=== PATIENT | female | born 1935 | race Caucasian/White ===

== ENCOUNTER 2019-01-22 16:18 | Inpatient (IN) | payer OTHER, MEDICAID ==
[~2019-01-22] VITALS: Ht 152.4 cm; Wt 74.0 kg
[2019-01-22 17:28] LABS: BASOPHILS % (AUTO) 0.5 % (0.0-2.0); EOSINOPHILS % (AUTO) 0.1 % (0.0-6.0); HEMATOCRIT 27 % (33-45); HEMOGLOBIN 9.1 g/dL (11.5-14.8); LYMPHOCYTES # (AUTO) 1.4 /CMM (0.8-4.8); LYMPHOCYTES % (AUTO) 15.8 % (20.0-44.0); MEAN CORPUSCULAR HGB CONC 34 g/dl (31.0-36.0); MEAN CORPUSCULAR VOLUME 90 fL (82-100); MONOCYTES # (AUTO) 0.5 /CMM (0.1-1.30); MONOCYTES % (AUTO) 5.4 % (2.0-12.0); NEUTROPHILS # (AUTO) 6.8 /CMM (1.8-8.9); NEUTROPHILS % (AUTO) 78.2 % (43.0-81.0); PLATELET COUNT (AUTO) 223 /CMM (150-450); RED BLOOD CELL COUNT(AUTO) 3.03 MIL/uL (4.0-5.2); WHITE BLOOD COUNT (AUTO) 8.7 K/uL (4.3-11.0)
[2019-01-22] MEDS ORDERED: HYDROCODONE/APAP 5/325MG 1 EACH TABLET PO ONE (17:30)
[2019-01-22] MEDS ORDERED: ONDANSETRON 4 MG TAB.RAPDIS SL ONE (17:30)
[2019-01-22] MEDS ORDERED: HYDROCODONE/APAP 5/325MG 1 EACH TABLET ONE (17:34)
[2019-01-22] MEDS ORDERED: ONDANSETRON 4 MG TAB.RAPDIS ONE (17:34)
[2019-01-22 17:36] LABS: CARBON DIOXIDE 28 mmol/L (21-32); CHLORIDE 103 mmol/L (98-107); CREATININE 1.4 mg/dL (0.6-1.3); GLUCOSE 145 mg/dL (74-106); POTASSIUM 3.5 mmol/L (3.5-5.1); SODIUM SERUM 140 mmol/L (136-145); UREA NITROGEN, BLOOD 28 mg/dL (7-18)
--- NOTE | 2019-01-22 17:40 | NUR ---
Patient awake alert place in gown family @ bedside
--- NOTE | 2019-01-22 18:09 | NUR ---
Patient asleep @ this time but arousable her family @ bedside .
--- NOTE | 2019-01-22 18:52 | NUR ---
CALLED [facility] [phone] ---> [phone] TO CONTACT ABDIFATAH Ch
[2019-01-22] MEDS ORDERED: ONDANSETRON HCL/PF 4 MG/2 ML VIAL ONE (19:17)
[2019-01-22] MEDS ORDERED: MORPHINE SULFATE INJ 2 MG/ML DISP.SYRIN ONE (19:17)
[2019-01-22] MEDS ORDERED: MORPHINE SULFATE INJ 2 MG/ML DISP.SYRIN IV ONE (19:30)
[2019-01-22] MEDS ORDERED: IV NS 0.9% 500 ML BAG IV ONE (19:30)
[2019-01-22] MEDS ORDERED: ONDANSETRON HCL/PF - ER 4 MG/2 ML VIAL IV ONE (19:30)
--- NOTE | 2019-01-22 19:54 | NUR ---
ROME GALAVIZ ([facility]) - [phone]
--- NOTE | 2019-01-22 20:05 | NUR ---
CALLED HOUSE [facility] FOR MS BED
[2019-01-22] MEDS ORDERED: ONDANSETRON HCL/PF 4 MG/2 ML VIAL IVP PRN (20:30)
[2019-01-22] MEDS ORDERED: Z GUARD REMEDY 2 OZ OINT TP PRN (20:30)
[2019-01-22] MEDS ORDERED: MAG HYDROX/AL HYDROX/SIMETH 30 ML UDC PO PRN (20:30)
--- NOTE | 2019-01-22 20:39 | NUR ---
REPORT GIVEN TO GARY IBARRA FOR JAVIER.
[2019-01-22 21:04] LABS: APPEARANCE,URINE Slightly Cloudy (CLEAR); BILIRUBIN,URINE Negative (NEGATIVE); BLOOD, URINE Negative Ery/uL (NEGATIVE); COLOR,URINE Dark (YELLOW); KETONES,URINE Negative (NEGATIVE); LEUKOCYTE ESTERASE ,URINE Trace (NEGATIVE); NITRITE, URINE Negative (NEGATIVE); PH,URINE 8.5 (5.0-8.0); PROTEIN,URINE Negative (NEGATIVE); UGLUCOSE Negative (NEGATIVE); UROBILINOGEN,URINE 0.2 EU/dL (0.2)
[2019-01-22 21:05] VITALS: BP 132/72
[2019-01-22 21:08] LABS: BACTERIA,URINE Few /HPF (None Seen); RBC,URINE 0-2 /HPF (0-2); SQUAMOUS EPITHELIAL CELL,UR Moderate /HPF (None Seen); URINE AMORPHOUS PHOSPHATES Moderate /HPF (None Seen)
--- NOTE | 2019-01-22 21:10 | NUR ---
PT TRANSPORTED TO UNIT ON [facility] W/ EMT AT BEDSIDE.
--- NOTE | 2019-01-22 21:10 | NUR ---
MS WILDLIFE CONTROL AGENT NOTES PATIENT CAME TO UNIT VIA GURNEY. PATIENT IS ALERT, ORIENTED X 4. NO COMPLAINTS OF PAIN EXCEPT UPON MOVEMENT. BREATHING EVEN AND UNLABORED. NOT IN ANY DISTRESS. ON ROOM AIR. VITAL SIGNS WITHIN NORMAL LIMITS. IV ACCESS ON RFA G#20 INTACT AND PATENT. ASKED PATIENT ABOUT HOME MEDICATIONS, PATIENT SAID SHE CAN'T REMEMBER ALL OF THEM. SON, ROME, WILL BRING THE LIST OF HOME MEDS IN THE MORNING. BELONGINGS LIST CHECKED BY KEE GREGORIO. ORIENTED TO CALL LIGHT- PLACED WITHIN EASY REACH. BED IN LOW, LOCKED POSITION. WILL CONTINUE TO MONITOR ACCORDINGLY
[2019-01-22 21:30] VITALS: BP 132/72
[2019-01-22] MEDS: IV NS 0.9% 1,000 ML IV PRN (22:00)
[2019-01-22] MEDS ORDERED: PHYTONADIONE INJ 10 MG/1 ML AMPUL SQ ONE (23:30)
--- NOTE | 2019-01-23 00:10 | NUR ---
RN NOTES JAVA TECHNICAL ARCHITECT EMELI CURRENTLY AT BEDSIDE
[2019-01-23] MEDS ORDERED: LEVOFLOXACIN 250 MG /D5W 50 ML 50 ML IV ONE (04:59)
[2019-01-23] MEDS: LEVOFLOXACIN 250 MG /D5W 50 ML 250 MG in PREMIX 1 EA IV SCH (05:00)
[2019-01-23] MEDS: MORPHINE SULFATE INJ 2 MG/ML DISP.SYRIN IV PRN (06:28)
[2019-01-23 06:33] LABS: BASOPHILS % (AUTO) 0.3 % (0.0-2.0); EOSINOPHILS % (AUTO) 0.3 % (0.0-6.0); HEMATOCRIT 22 % (33-45); HEMOGLOBIN 7.5 g/dL (11.5-14.8); LYMPHOCYTES # (AUTO) 1.8 /CMM (0.8-4.8); LYMPHOCYTES % (AUTO) 28.9 % (20.0-44.0); MEAN CORPUSCULAR HGB CONC 34 g/dl (31.0-36.0); MEAN CORPUSCULAR VOLUME 89 fL (82-100); MONOCYTES # (AUTO) 0.5 /CMM (0.1-1.30); MONOCYTES % (AUTO) 7.8 % (2.0-12.0); NEUTROPHILS % (AUTO) 62.7 % (43.0-81.0); PLATELET COUNT (AUTO) 208 /CMM (150-450); RED BLOOD CELL COUNT(AUTO) 2.49 MIL/uL (4.0-5.2); WHITE BLOOD COUNT (AUTO) 6.3 K/uL (4.3-11.0)
--- NOTE | 2019-01-23 06:34 | NUR ---
Maintain limbs in functional alignment *Reposition per protocol *Offload extremities Addendum: 01/23/19 at 0639 by FRED LICEA RN DISREGARD
--- NOTE | 2019-01-23 06:42 | NUR ---
MS RN CLOSING NOTES PATIENT RESTING IN BED, ALERT, ORIENTED X 4. PATIENT C/O LEFT LEG PAIN, 8. MORPHINE 1MG IV GIVEN ORDERED. PERIPHERAL IV INFUSING AT 75ML/HR. KEPT CLEAN, DRY AND COMFORTABLE. NO ACUTE CHANGES OVERNIGHT. SAFETY MEASURES IN PLACE; CALL LIGHT WITHIN REACH. BED IN LOW, LOCKED POSITION. WILL CONTINUE TO MONITOR ACCORDINGLY
--- NOTE | 2019-01-23 06:50 | NUR ---
RN NOTES RECEIVED A CALL FROM LAB OF CRITICAL VALUE OF INR-6.64 AND PTT- 71.4. EMELI HEATH MADE AWARE. AWAITING FOR CALLBACK. WILL ENDORSE TO MORNING RN
[2019-01-23 07:05] LABS: CALCIUM, SERUM 8.2 mg/dL (8.5-10.1); CARBON DIOXIDE 27 mmol/L (21-32); CHLORIDE 107 mmol/L (98-107); CREATININE 1.6 mg/dL (0.6-1.3); GLUCOSE 129 mg/dL (74-106); MAGNESIUM 1.8 mg/dL (1.8-2.4); PHOSPHORUS 3.7 mg/dL (2.5-4.9); POTASSIUM 3.1 mmol/L (3.5-5.1); SODIUM SERUM 141 mmol/L (136-145); UREA NITROGEN, BLOOD 32 mg/dL (7-18)
--- NOTE | 2019-01-23 07:10 | NUR ---
MS RN OPENING NOTES RECEIVED PATIENT IN BED ALERT AND AWAKE. DENIES ANY C/O PAIN NOR DISCOMFORT AT THIS TIME. RFA G#20 INTACT AND PATENT INFUSING NS @ 75ML/HR [place]. PT/INR RESULT RELAYED TO [facility] WITH ORDER FOR DAILY PT/INR. BED IN LOWEST POSITION, LOCKED. BED SIDERAILS UP X2. CALL LIGHT WITHIN REACH.
--- NOTE | 2019-01-23 07:10 | NUR ---
RN NOTES ENDORSED JAVIER TO GARY NIELSON
[2019-01-23 07:13] LABS: CHOLESTEROL 128 mg/dL (<200); HDL CHOLESTEROL 34 mg/dL (40-60); LDL 71 mg/dL (0-99); THYROID STIMULATING HORMONE 2.992 uIU/mL (0.358-3.74); TRIGLYCERIDES 143 mg/dL (30-150)
[2019-01-23 08:00] VITALS: BP 117/72
[2019-01-23] MEDS ORDERED: POTASSIUM CHLORIDE 20 MEQ TAB.PRT.SR PO ONE (08:00)
[2019-01-23] MEDS: IV NS 0.9% 1,000 ML IV PRN (08:33)
[2019-01-23] MEDS: POTASSIUM CL. PREMIX PERIPHER. 50 ML IV SCH ×4 (08:53→12:26)
[2019-01-23] MEDS: PANTOPRAZOLE 40 MG VIAL IV SCH (08:53)
[2019-01-23] MEDS: HYDROCODONE/APAP 5/325MG 1 EACH TABLET PO PRN ×2 (09:27→18:03)
[2019-01-23] MEDS ORDERED: AMIO200T4 PO (12:02)
[2019-01-23] MEDS ORDERED: VERA240C2 PO (12:02)
[2019-01-23] MEDS ORDERED: WARF-58 PO (12:02)
[2019-01-23] MEDS ORDERED: HYDR25TA4 PO (12:02)
[2019-01-23] MEDS ORDERED: CALC-20 PO (12:02)
[2019-01-23] MEDS ORDERED: LOSA50TA39 PO (12:02)
[2019-01-23] MEDS ORDERED: DOCU100C36 PO (12:02)
[2019-01-23] MEDS ORDERED: SENN-168 PO (12:02)
[2019-01-23] MEDS ORDERED: FENO54TA PO (12:02)
[2019-01-23] MEDS ORDERED: PRAV40TA3 PO (12:02)
[2019-01-23] MEDS ORDERED: KETO5DRO72 EACHEYE (12:02)
[2019-01-23] MEDS ORDERED: DICL100G16 TP (12:02)
[2019-01-23] MEDS ORDERED: TRIA60LO8 TP (12:02)
[2019-01-23] MEDS ORDERED: VERA120T20 PO (12:05)
--- NOTE | 2019-01-23 19:11 | NUR ---
MS RN CLOSING NOTES PATIENT IN RESTING COMFORTABLY IN BED. DENIES ANY C/O PAIN NOR DISCOMFORT AT THIS TIME. RFA G#20 INTACT AND PATENT INFUSING NS @ 80ML/HR [place]. FAMILY AT BEDSIDE. FAMILY REQUESTING FOR TRANSFER TO [facility]. INFORMED SONROME THAT AN ACCEPTING MD AT [place] HAS TO ACCEPT PATIENT IN [place]. PER SON HE WILL COORDINATE WITH PATIENT'S PRIMARY MD. ALSO INFORMED SON TO SPEAK WITH CASE MANAGEMENT IN AM. BED IN LOWEST POSITION, LOCKED. BED SIDERAILS UP X2. CALL LIGHT WITHIN REACH. IN NO APPARENT DISTRESS.
--- NOTE | 2019-01-23 19:20 | NUR ---
RN OPENING NOTES RECEIVED PATIENT ASLEEP, RESTING COMFORTABLY IN BED, EASILY AROUSABLE TO MY VOICE. NO SIGNS OF RESPIRATORY DISTRESS/SHORTNESS OF BREATH NOTED. RFA G#20 INTACT AND PATENT WITH IVF INFUSING AT 80 ML/HR. FAMILY AT BED SIDE. NO COMPLAINTS OF PAIN/DISCOMFORT AT THIS TIME. SAFETY PRECAUTIONS IMPLEMENTED; CALL LIGHT WITHIN REACH, BED LOWEST POSITION, BED LOCKED, BILATERAL UPPER SIDE RAILS UP. WILL CONTINUE TO MONITOR PATIENT.
[2019-01-23 20:00] VITALS: BP 145/65
--- NOTE | 2019-01-23 22:55 | NUR ---
BARREL MAKER OF CARE PATIENT IN STABLE CONDITION. REPORT GIVEN AND TRANSFER OF CARE TO GARY WONG.
[2019-01-24] VITALS (7 sets, daily range): BP systolic 95–142; BP diastolic 46–68
[2019-01-24] MEDS: LEVOFLOXACIN 250 MG /D5W 50 ML 250 MG in PREMIX 1 EA IV SCH (05:22)
--- NOTE | 2019-01-24 06:40 | NUR ---
MS RN NOTES AWAKE & RESPONSIVE. NOT IN ANY DISTRESS. NO SOB NOTED. DENIES ANY PAIN OR DISCOMFORT AT THIS TIME. WITH IV-HL PATENT & INTACT. AM CARE DONE. MONITORED ACCORDINGLY. CALL LIGHT WITHIN REACH. BED IN LOWEST POSITION. SR UP X 3 WITH BED ALARM ON FOR SAFETY. WILL ENDORSE TO NEXT SHIFT.
[2019-01-24 06:48] LABS: BASOPHILS % (AUTO) 0.2 % (0.0-2.0); EOSINOPHILS % (AUTO) 0.1 % (0.0-6.0); LYMPHOCYTES # (AUTO) 1.3 /CMM (0.8-4.8); LYMPHOCYTES % (AUTO) 16.5 % (20.0-44.0); MEAN CORPUSCULAR HGB CONC 34 g/dl (31.0-36.0); MEAN CORPUSCULAR VOLUME 89 fL (82-100); MONOCYTES # (AUTO) 0.6 /CMM (0.1-1.30); NEUTROPHILS % (AUTO) 75.2 % (43.0-81.0); PLATELET COUNT (AUTO) 203 /CMM (150-450); RED BLOOD CELL COUNT(AUTO) 2.08 MIL/uL (4.0-5.2)
[2019-01-24 07:05] LABS: HEMOGLOBIN 6.4 g/dL (11.5-14.8)
[2019-01-24 07:06] LABS: HEMATOCRIT 19 % (33-45)
[2019-01-24 07:21] LABS: CALCIUM, SERUM 8.2 mg/dL (8.5-10.1); CREATININE 1.3 mg/dL (0.6-1.3); POTASSIUM 3.9 mmol/L (3.5-5.1)
--- NOTE | 2019-01-24 07:25 | NUR ---
MS RN NOTES H/H 6.4 & 29. REPORT GIVEN TO NEHA VEGA FOR CONTINUITY OF CARE. WILL F/U WITH PMD.
--- NOTE | 2019-01-24 08:00 | NUR ---
MS RN OPENING NOTES Received Patient asleep and resting in bed. VS stable with no acute distress. Breathing even and unlabored on room air with no respiratory distress. No signs and symptoms of pain. Noted infiltrated 22g PIV on RFA with redness and edema noted. Stopped IVF at this time. Safety precautions in place. Bed locked and set to lowest position with side rails x 2 up. All needs rendered at this time. Call light within reach. Will continue to monitor.
--- NOTE | 2019-01-24 08:17 | NUR ---
MS RN NOTES Notified Ashish TESTER OPERATOR of critical H/H-6.06/07 at this time. Per TESTER OPERATOR, ordered redraw CBC. Patient in stable condition and eating breakfast. Will continue to monitor.
[2019-01-24 08:18] LABS: BASOPHILS % (AUTO) 0.3 % (0.0-2.0); LYMPHOCYTES # (AUTO) 1.1 /CMM (0.8-4.8); LYMPHOCYTES % (AUTO) 12.4 % (20.0-44.0); MEAN CORPUSCULAR HGB CONC 34 g/dl (31.0-36.0); MEAN CORPUSCULAR VOLUME 90 fL (82-100); MONOCYTES # (AUTO) 0.7 /CMM (0.1-1.30); MONOCYTES % (AUTO) 7.8 % (2.0-12.0); NEUTROPHILS # (AUTO) 7.3 /CMM (1.8-8.9); NEUTROPHILS % (AUTO) 79.5 % (43.0-81.0); PLATELET COUNT (AUTO) 221 /CMM (150-450); RED BLOOD CELL COUNT(AUTO) 2.05 MIL/uL (4.0-5.2); WHITE BLOOD COUNT (AUTO) 9.2 K/uL (4.3-11.0)
[2019-01-24 08:26] LABS: HEMOGLOBIN 6.3 g/dL (11.5-14.8)
[2019-01-24 08:27] LABS: HEMATOCRIT 19 % (33-45)
[2019-01-24 08:50] LABS: LYMPHOCYTES % (MANUAL) 18 % (16-48); MONOCYTES % (MANUAL) 5 % (0-11.0); NEUTROPHILS % (MANUAL) 77 (42-76)
--- NOTE | 2019-01-24 08:55 | NUR ---
MS RN NOTES Notified Ashish MANAGEMENT COORDINATOR of critical H/H of 6.3. Per MANAGEMENT COORDINATOR, ordered 1unit PRBC. Order noted and carried out. Patient in stable condition. Son at bedside. Will continue to monitor.
[2019-01-24] MEDS: PANTOPRAZOLE 40 MG VIAL IV SCH (09:00)
[2019-01-24 10:21] LABS: IRON, SERUM 30 ug/dl (50-175); TOTAL IRON BINDING CAPACITY 192 ug/dl (250-450)
[2019-01-24] MEDS: HYDROCODONE/APAP 5/325MG 1 EACH TABLET PO PRN ×2 (10:30→18:00)
--- NOTE | 2019-01-24 10:30 | NUR ---
MS RN NOTES Obtained signed consent for blood transfusion at this time from son (Mik). Explained risks and benefits with Patient and son. Patient and son verbalized understanding and agreed to blood transfusion.
--- NOTE | 2019-01-24 10:35 | NUR ---
MS RN NOTES Removed infiltrated PIV on RFA clean and intact. Inserted 20g PIV on LFA clean, intact, patent and flushing well with NS at 80ml/hr. Patient tolerated well. Son at bedside. Will continue to monitor.
--- NOTE | 2019-01-24 16:45 | NUR ---
MS RN NOTES Completed blood transfusion at this time. Patient in stable condition. VS stable with no acute distress. Breathing even and unlabored on room air with no respiratory distress. No signs and symptoms of allergic reaction at this time. Family at bedside. Will continue to monitor.
[2019-01-24] MEDS: FERROUS SULFATE (325 MG) 325 MG/TAB TABLET PO SCH (17:57)
--- NOTE | 2019-01-24 19:11 | NUR ---
MS RN CLOSING NOTES Patient asleep and resting in bed. VS stable with no acute distress. Breathing even and unlabored on room air with no respiratory distress. No signs and symptoms of pain. 20g PIV on LFA clean, intact and patent with NS infusing at 80ml/hr. Safety precautions in place. Bed locked and set to lowest position with side rails x 2 up. All needs rendered at this time. Call light within reach. Family at bedside. Will endorse plan of care to oncoming shift.
--- NOTE | 2019-01-24 19:52 | NUR ---
MS RN NOTES RECEIVED PATIENT ASLEEP IN BED WITH NO DISTRESS NOTED. CALL LIGHT WITHIN REACH. FAMILY AND CAREGIVER AT BEDSIDE. BED IN LOW LOCK SETTING WITH BED ALARM ON AND FUNCTIONING PROPERLY. ROOM FREE OF CLUTTER AND BELONGINGS KEPT NEAR BEDSIDE. WILL CONTINUE TO MONITOR
[2019-01-25] MEDS: HYDROCODONE/APAP 5/325MG 1 EACH TABLET PO PRN ×3 (01:12→21:36)
[2019-01-25] MEDS: LEVOFLOXACIN 250 MG /D5W 50 ML 250 MG in PREMIX 1 EA IV SCH (04:48)
[2019-01-25] MEDS: IV NS 0.9% 1,000 ML IV PRN (04:49)
--- NOTE | 2019-01-25 06:31 | NUR ---
MS RN NOTES PATIENT ASLEEP IN BED WITH NO DISTRESS NOTED. CALL LIGHT WITHIN REACH. ALL DUE MEDS GIVEN ORDERED WITH NO ASE. NO FURTHER C/O PAIN OR DISCOMFORT. PERIPHERAL LINE REPLACED WITH RAC #20 GAUGE AND TOLERATED WELL. NO ACTIVE BLEEDING NOTED. STOOL SPECIMEN FOR OB STOOL NOT OBTAINED D/T NO BM DURING SHIFT. BED IN LOW LOCK SETTING. BED ALARM ON AND FUNCTIONING PROPERLY. ALL BELONGINGS KEPT NEAR BEDSIDE. WILL CONTINUE TO MONITOR
[2019-01-25 06:38] LABS: BASOPHILS % (AUTO) 0.2 % (0.0-2.0); EOSINOPHILS % (AUTO) 0.2 % (0.0-6.0); HEMATOCRIT 21 % (33-45); HEMOGLOBIN 7.2 g/dL (11.5-14.8); LYMPHOCYTES # (AUTO) 1.5 /CMM (0.8-4.8); LYMPHOCYTES % (AUTO) 19.3 % (20.0-44.0); MEAN CORPUSCULAR HGB CONC 34 g/dl (31.0-36.0); MEAN CORPUSCULAR VOLUME 90 fL (82-100); MONOCYTES # (AUTO) 0.7 /CMM (0.1-1.30); MONOCYTES % (AUTO) 9.1 % (2.0-12.0); NEUTROPHILS # (AUTO) 5.5 /CMM (1.8-8.9); NEUTROPHILS % (AUTO) 71.2 % (43.0-81.0); PLATELET COUNT (AUTO) 186 /CMM (150-450); RED BLOOD CELL COUNT(AUTO) 2.34 MIL/uL (4.0-5.2); WHITE BLOOD COUNT (AUTO) 7.7 K/uL (4.3-11.0)
[2019-01-25 07:09] LABS: CREATININE 1.1 mg/dL (0.6-1.3); POTASSIUM 3.7 mmol/L (3.5-5.1)
--- NOTE | 2019-01-25 07:10 | NUR ---
RN INITIAL NOTE PATIENT IN BED, ASLEEP BUT EASILY AROUSABLE. ALERTX4. NO COMPLAINS OF ANY PAIN NOR SOB AT THIS TIME. S.P 2 UNITS OF PRBC YESTERDAY. TODAY'S HGB IS 7.2. HAS BILATERAL HEARING AIDS. HAS A RIGHT AC #20 WITH NS AT 80 ML/HR. PENDING TO COLLECT STOOL FOR OB. BED LOCKED AND IN LOWEST POSITION. CALL LIGHT WITHIN REACH. WILL CONTINUE TO MONITOR CLOSELY
[2019-01-25 08:00] VITALS: BP 150/58
[2019-01-25] MEDS: PANTOPRAZOLE 40 MG VIAL IV SCH (08:25)
[2019-01-25] MEDS: FERROUS SULFATE (325 MG) 325 MG/TAB TABLET PO SCH ×2 (08:26→16:34)
[2019-01-25] MEDS: MAGNESIUM HYDROXIDE 30 ML UDC PO PRN (08:42)
--- NOTE | 2019-01-25 12:01 | NUR ---
RN NOTE PATIENT HAS A DISTENDED ABDOMEN. PATIENT HAS THE URGE TO URINATE BUT COULDN'T. TRIED MASSAGING ABDOMEN BUT STILL NO URINE OUTPUT. DID BLADDER SCAN AND SHOWED 900ML OF URINE. PATIENT IS ON 80ML/HR NS. LITO EPSTEIN AND WAS ORDERED TO DO A STRAIGHT CATH Addendum: 01/25/19 at 1203 by FERDINAND ATKINS RN ALSO, PER RETAIL SALES ASSOCIATE SEASONAL, WILL HOLD DC FOR TOMORROW
[2019-01-25 16:00] VITALS: BP 91/60
--- NOTE | 2019-01-25 18:10 | NUR ---
RN NOTE SON AT BEDSIDE, HE NOTICED THAT HIS MOM IS HAVING A LITTLE TWITCHING ON HER JAW, SHOULDERS AND HANDS. TETE MADE AWARE, HE ORDERED A CT HEAD WITHOUT CONTRAST TO R/O STROKE. ORDER CARRIED OUT
--- NOTE | 2019-01-25 18:42 | NUR ---
RN CLOSING NOTE PATIENT IN BEING PICKED UP BY TRANSPORT FOR CT HEAD. ALL MEDS GIVEN. NO COMPLAINS OF ANY PAIN NOR SOB AT THIS TIME. DC PLANNING FOR TOMORROW BEING HELD BY COST ENGINEER DUE TO TWITCHING OF HER JAW, SHOULDERS AND ARMS. WILL ENDORSE TO NOC SHIFT RN FOR JAVIER
--- NOTE | 2019-01-25 19:18 | NUR ---
RN NOTE RADIOLOGIST CALLED, WANTED TO SPEAK WITH THE HOSPITALIST. DOES NOT WANT TO DISCLOSE ANYTHING TO THE NURSE. Addendum: 01/25/19 at 1919 by FERDINAND ATKINS RN TETE PAGED BACK, PATIENT IS NEGATIVE FOR STROKE
[2019-01-25 20:00] VITALS: BP 135/59
[2019-01-26] VITALS (7 sets, daily range): BP systolic 103–136; BP diastolic 47–59
[2019-01-26] MEDS: MORPHINE SULFATE INJ 2 MG/ML DISP.SYRIN IV PRN (00:51)
[2019-01-26] MEDS: HYDROCODONE/APAP 5/325MG 1 EACH TABLET PO PRN (04:06)
[2019-01-26] MEDS: IV NS 0.9% 1,000 ML IV PRN ×2 (04:06→20:00)
[2019-01-26] MEDS: LEVOFLOXACIN 250 MG /D5W 50 ML 250 MG in PREMIX 1 EA IV SCH (04:07)
--- NOTE | 2019-01-26 06:35 | NUR ---
MS RN NOTES AWAKE & RESPONSIVE. NOT IN ANY DISTRESS. NO SOB NOTED. DENIES ANY PAIN OR DISCOMFORT AT THIS TIME. WITH IVF INFUSING WELL. AM CARE DONE. MONITORED ACCORDINGLY. CALL LIGHT WITHIN REACH. BED IN LOWEST POSITION. SR UP X 3 WITH BED ALARM ON FOR SAFETY. WILL ENDORSE TO NEXT SHIFT.
[2019-01-26 08:13] LABS: CALCIUM, SERUM 7.7 mg/dL (8.5-10.1); POTASSIUM 3.7 mmol/L (3.5-5.1)
[2019-01-26 08:16] LABS: BASOPHILS % (AUTO) 0.3 % (0.0-2.0); EOSINOPHILS % (AUTO) 0.3 % (0.0-6.0); LYMPHOCYTES # (AUTO) 1.2 /CMM (0.8-4.8); LYMPHOCYTES % (AUTO) 14.4 % (20.0-44.0); MEAN CORPUSCULAR HGB CONC 34 g/dl (31.0-36.0); MEAN CORPUSCULAR VOLUME 90 fL (82-100); MONOCYTES # (AUTO) 0.7 /CMM (0.1-1.30); MONOCYTES % (AUTO) 8.4 % (2.0-12.0); NEUTROPHILS # (AUTO) 6.5 /CMM (1.8-8.9); NEUTROPHILS % (AUTO) 76.6 % (43.0-81.0); PLATELET COUNT (AUTO) 204 /CMM (150-450); RED BLOOD CELL COUNT(AUTO) 2.13 MIL/uL (4.0-5.2); WHITE BLOOD COUNT (AUTO) 8.5 K/uL (4.3-11.0)
[2019-01-26 08:21] LABS: HEMATOCRIT 19 % (33-45); HEMOGLOBIN 6.6 g/dL (11.5-14.8)
--- NOTE | 2019-01-26 08:24 | NUR ---
M/S RN NOTES FAITH Art FROM LAB REPORTED CRITICAL VALUES HGB 6.6 AND HCT 19, NOTIFIED KUMAR IVAN AND AWAITING FOR ORDERS.
--- NOTE | 2019-01-26 08:25 | NUR ---
M/S RN NOTES 1 UNIT PRBC ORDERED BY KUMAR IVAN. ORDERED CARRIED OUT.
[2019-01-26] MEDS: MAGNESIUM HYDROXIDE 30 ML UDC PO PRN (08:57)
[2019-01-26] MEDS: PANTOPRAZOLE 40 MG VIAL IV SCH ×2 (08:57→21:33)
[2019-01-26] MEDS: FERROUS SULFATE (325 MG) 325 MG/TAB TABLET PO SCH ×2 (08:58→17:00)
[2019-01-26 10:36] LABS: LYMPHOCYTES % (MANUAL) 12 % (16-48); MONOCYTES % (MANUAL) 7 % (0-11.0); MYELOCYTES % 1 % (0-0); NEUTROPHILS % (MANUAL) 80 (42-76)
--- NOTE | 2019-01-26 11:15 | NUR ---
M/S RN NOTES PATIENT'S V/S TAKEN PRIOR TO BLOOD TRANSFUSION. BLOOD TRANSFUSION STARTED. PATIENT IN NO RESPIRATORY DISTRESS, NO C/O PAIN. WILL REASSESS V/S IN 15 MIN. WILL CONTINUE TO MONITOR.
--- NOTE | 2019-01-26 14:12 | NUR ---
M/S RN NOTES BLOOD TRANSFUSION DONE, PATIENT IN NO RESPIRATORY DISTRESS, PATIENT'S VITAL SIGNS STABLE. PATIENT AWAKE WITH FAMILY AT BEDSIDE. WILL CONTINUE TO MONITOR.
[2019-01-26] MEDS: ACETAMINOPHEN 325 MG TABLET PO PRN (14:58)
--- NOTE | 2019-01-26 19:14 | NUR ---
M/S RN NOTES PATIENT RESTING, LYING IN BED, NO RESPIRATORY DISTRESS, NO C/O PAIN AT THIS TIME. IV ACCESS SITES INTACT AND PATENT. IV NS INFUSING AT 80ML/HR. SKIN WARM TO TOUCH. BED ON LOWEST LOCKED POSITION, CALL LIGHT WITHIN REACH. WILL ENDORSE TO ONCOMING NURSE.
--- NOTE | 2019-01-26 19:15 | NUR ---
M/S RN PM OPENING NOTES BEDSIDE REPORT RECIEVED FROM GONZALEZ VEGA. NEED STOOL OB TO BE COLLECTED PT HAS BEEN CONSTIPATED WITH NO BM SINCE ADMISSION PER REPORT. PATIENT RESTING, LYING IN BED, NO RESPIRATORY DISTRESS, NO C/O PAIN AT THIS TIME. IV ACCESS SITES INTACT AND PATENT. IV NS INFUSING AT 80ML/HR. SKIN WARM TO TOUCH. BED ON LOWEST LOCKED POSITION, CALL LIGHT WITHIN REACH.
[2019-01-26] MEDS ORDERED: BISACODYL SUPP (10 MG) 10 MG/SUPP.RECT SUPP.RECT RC PRN (20:00)
[2019-01-27 02:45] LABS: OCCULT BLOOD STOOL NEGATIVE (NEGATIVE)
[2019-01-27] MEDS: LEVOFLOXACIN 250 MG /D5W 50 ML 250 MG in PREMIX 1 EA IV SCH (05:13)
--- NOTE | 2019-01-27 06:30 | NUR ---
RN CLOSING NOTES PATIENT IN BED RESTING COMFORTABLY IN SEMIFOWLERS POSITION. A/O X4. NO SIGNS OF DISTRESS NOTED AT THIS TIME. IV ACCESS ON RAC#20 WITH NS RUNNING @80ML/HR. PATENT AND INTACT. SAFETY MEASURES IN PLACE, BED IN LOW LOCKED POSITION WITH SIDE RAILS UP X2. CALL LIGHT WITHIN REACH. PT DENIES PAIN.
[2019-01-27 06:43] LABS: BASOPHILS % (AUTO) 0.2 % (0.0-2.0); EOSINOPHILS % (AUTO) 1.5 % (0.0-6.0); HEMATOCRIT 25 % (33-45); HEMOGLOBIN 8.4 g/dL (11.5-14.8); LYMPHOCYTES # (AUTO) 1.6 /CMM (0.8-4.8); LYMPHOCYTES % (AUTO) 26.3 % (20.0-44.0); MEAN CORPUSCULAR HGB CONC 33 g/dl (31.0-36.0); MEAN CORPUSCULAR VOLUME 92 fL (82-100); MONOCYTES # (AUTO) 0.6 /CMM (0.1-1.30); MONOCYTES % (AUTO) 9.6 % (2.0-12.0); NEUTROPHILS # (AUTO) 3.7 /CMM (1.8-8.9); NEUTROPHILS % (AUTO) 62.4 % (43.0-81.0); PLATELET COUNT (AUTO) 206 /CMM (150-450); RED BLOOD CELL COUNT(AUTO) 2.74 MIL/uL (4.0-5.2)
[2019-01-27 07:17] LABS: CALCIUM, SERUM 7.9 mg/dL (8.5-10.1); CREATININE 0.9 mg/dL (0.6-1.3); POTASSIUM 4.2 mmol/L (3.5-5.1)
--- NOTE | 2019-01-27 07:38 | NUR ---
RN OPENING NOTES RECEIVED PATIENT IN BED RESTING COMFORTABLY IN MODERATE HIGH BACK REST. A/O X4. NO SIGNS OF DISTRESS NOTED AT THIS TIME. IV ACCESS ON RAC#20 WITH NS RUNNING @80ML/HR. PATENT AND INTACT. SAFETY MEASURES IN PLACE, BED IN LOW LOCKED POSITION WITH SIDE RAILS UP X2. CALL LIGHT WITHIN REACH. WILL CONTINUE TO MONITOR.
[2019-01-27 08:00] VITALS: BP 145/60
[2019-01-27] MEDS: PANTOPRAZOLE 40 MG VIAL IV SCH ×2 (08:29→20:07)
[2019-01-27] MEDS: FERROUS SULFATE (325 MG) 325 MG/TAB TABLET PO SCH ×2 (08:29→16:22)
[2019-01-27] MEDS: IV NS 0.9% 1,000 ML IV PRN (09:00)
[2019-01-27] MEDS: ACETAMINOPHEN 325 MG TABLET PO PRN (09:00)
--- NOTE | 2019-01-27 10:10 | NUR ---
MS/RN NOTE PER FIRE ADJUSTER BETTY CHANGED CT ABD PELVIS WO AND CT HIP LEFT WO FROM ROUTINE TO STAT. NOTED AND CARRIED OUT.
[2019-01-27] MEDS: HYDROCODONE/APAP 5/325MG 1 EACH TABLET PO PRN ×2 (13:43→22:47)
[2019-01-27 14:00] VITALS: BP 136/61
--- NOTE | 2019-01-27 18:38 | NUR ---
RN CLOSING NOTES PATIENT IN BED RESTING COMFORTABLY IN MODERATE HIGH BACK REST. A/O X4. FAMILY AT BEDSIDE. NO SIGNS OF DISTRESS NOTED THROUGHOUT THE SHIFT. IV ACCESS ON RAC#20, SL. PATENT AND INTACT. ALL DUE MEDS GIVEN. SAFETY MEASURES IN PLACE, BED IN LOW LOCKED POSITION WITH SIDE RAILS UP X2. CALL LIGHT WITHIN REACH. WILL ENDORSE TO ANALYSIS MGR NURSE FOR JAVIER.
--- NOTE | 2019-01-27 19:00 | NUR ---
GARY MS OPENING NOTES RECEIVED PATIENT IN BED AWAKE ALERT AND ORIENTED X3, RESPIRATIONS EVEN AND UNLABORED WITH EQUAL RISE AND FALL OF CHEST, DENIES ANY PAIN OR DISCOMFORT AT THIS TIME, IV SITE TO RIGHT AC #20 G INTACT AND PATENT, AND IV TO RIGHT HAND #24 INTACT AND PATENT, NO REDNESS, NO INFILTRATION PRESENT, SAFETY PRECAUTIONS IN PLACE, LOW BED AND LOCKED, ORIENTED TO STAFF AND CALL LIGHT AND KEPT WITHIN REACH, ALL NEEDS ATTENDED AT THIS TIME WILL CONTINUE TO MONITOR AND ATTEND TO NEEDS. Addendum: 01/27/19 at 5632 by DICK PEREZ RN clarification left ac
[2019-01-27 20:00] VITALS: BP 135/60
--- NOTE | 2019-01-27 22:47 | NUR ---
RN MS NOTES PATIENT COMPLAINT OF PAIN TO LEFT HIP AND BACK 09/28 REQUESTED FOR NORCO, VS WNL NORCO PRN GIVEN ORDERED, WILL CONTINUE TO MONITOR PATIENT REPOSITIONED.
[2019-01-28] MEDS: ACETAMINOPHEN 325 MG TABLET PO PRN ×2 (01:38→17:55)
--- NOTE | 2019-01-28 01:38 | NUR ---
RN MS NOTES PATIENT COMPLAINT OF PAIN TO BACK AND LEFT THIGH AREA, REQUESTING FOR PAIN MEDICATION TYLENOL.PRN TYLENOL GIVEN ORDERED, REPOSITIONED WILL CONTINUE TO MONITOR FOR EFFECTIVENESS.
--- NOTE | 2019-01-28 01:50 | NUR ---
RN MS NOTES HOSPITALIST MADE AWARE OF CT ABD/PELVIS AND HIP CT RESULTED LATE AND DONE IN THE AM. AT THIS TIME PER HOSPITALIST NO FRACTURE, SLIGHT SLUDGE IN GB, NOT SIGNIFICANT AM PROVIDER TO FOLLOW UP. PATIENT REMAINS CALM ,ASYMPTOMATIC.NO ABD PAIN, NO N/V.
[2019-01-28] MEDS ORDERED: LEVOFLOXACIN (250MG) 250 MG TABLET PO SCH (06:00)
[2019-01-28 06:16] LABS: BASOPHILS % (AUTO) 0.3 % (0.0-2.0); EOSINOPHILS % (AUTO) 1.7 % (0.0-6.0); HEMATOCRIT 26 % (33-45); HEMOGLOBIN 8.6 g/dL (11.5-14.8); LYMPHOCYTES # (AUTO) 1.6 /CMM (0.8-4.8); LYMPHOCYTES % (AUTO) 27.1 % (20.0-44.0); MEAN CORPUSCULAR HGB CONC 33 g/dl (31.0-36.0); MEAN CORPUSCULAR VOLUME 91 fL (82-100); MONOCYTES # (AUTO) 0.6 /CMM (0.1-1.30); MONOCYTES % (AUTO) 9.6 % (2.0-12.0); NEUTROPHILS # (AUTO) 3.6 /CMM (1.8-8.9); NEUTROPHILS % (AUTO) 61.3 % (43.0-81.0); PLATELET COUNT (AUTO) 246 /CMM (150-450); RED BLOOD CELL COUNT(AUTO) 2.86 MIL/uL (4.0-5.2); WHITE BLOOD COUNT (AUTO) 5.8 K/uL (4.3-11.0)
[2019-01-28 06:49] LABS: BILIRUBIN,TOTAL 0.9 mg/dL (0.2-1.0); CALCIUM, SERUM 7.9 mg/dL (8.5-10.1); CREATININE 0.9 mg/dL (0.6-1.3); MAGNESIUM 2.3 mg/dL (1.8-2.4); PHOSPHORUS 2.2 mg/dL (2.5-4.9); POTASSIUM 4.2 mmol/L (3.5-5.1); TOTAL PROTEIN, SERUM 5.5 g/dL (6.4-8.2)
--- NOTE | 2019-01-28 06:58 | NUR ---
RN MS CLOSING NOTES PATIENT IN BED AWAKE ALERT AND ORIENTED X3, RESPIRATIONS EVEN AND UNLABORED WITH EQUAL RISE AND FALL OF CHEST, DENIES ANY PAIN OR DISCOMFORT AT THIS TIME, IV SITE TO LEFT AC #20 G INTACT AND PATENT, AND IV TO RIGHT HAND #24 INTACT AND PATENT, NO REDNESS, NO INFILTRATION PRESENT, SAFETY PRECAUTIONS IN PLACE, LOW BED AND LOCKED, CALL LIGHT KEPT WITHIN REACH, ALL NEEDS ATTENDED AT THIS TIME WILL CONTINUE TO MONITOR AND ATTEND TO NEEDS PATIENT REPOSITIONED THROUGHOUT SHIFT SKIN REMAINS INTACT, SCDS IN PLACE, REMAINS COMFORTABLE WILL ENDORSE TO NEST SHIFT.
--- NOTE | 2019-01-28 07:00 | NUR ---
RN AM SHIFT NOTE PATIENT ALERT ORIENTED AND IN BED , PARTICPATING IN CARE. IV PATENT AND INTAKE. MD TO SEE PATIENT TODAY REGARDING POSSIBLE DISCHARGE. SIDE RAILS UP , BED IN LOW POSITION. CONTINUE MONITORING.
[2019-01-28 08:00] VITALS: BP 157/71
[2019-01-28] MEDS: PANTOPRAZOLE 40 MG VIAL IV SCH ×2 (08:23→20:05)
[2019-01-28] MEDS: FERROUS SULFATE (325 MG) 325 MG/TAB TABLET PO SCH ×2 (08:23→17:00)
--- NOTE | 2019-01-28 09:00 | NUR ---
GARY STALEY 108 Addendum: 01/28/19 at 1148 by VERÓNICA KRUEGER RN WRONG PATIENT
[2019-01-28] MEDS ORDERED: POTASSIUM CHLORIDE 20 MEQ TAB.PRT.SR PO SCH (11:00)
[2019-01-28] MEDS ORDERED: K PHOS NEUTRAL 250 MG TABLET PO ONE (11:00)
--- NOTE | 2019-01-28 11:45 | NUR ---
RN NOTE RN CALLED PHARMACY X3 SINCE 9AM TO OBTAIN LANTUS INJECTION. NOTHING HAS BEEN DELIVERED YET, THAT IS WHY ADMINISTRATION HAS NOT BEEN DONE. RN CHECKED BS TO ASSESS BS 108 Addendum: 01/28/19 at 1149 by VERÓNICA KRUEGER RN WRONG PATIENT
[2019-01-28] MEDS ORDERED: WARF3TAB59 PO (11:50)
--- NOTE | 2019-01-28 14:00 | NUR ---
RN NOTE TRANSPORTATION RN SPOKE W CASE MANAGMENT WHO ARRANGED TRANSPORT AT 2PM. FAMILY AT BEDSIDE. ALL BELONGINGS CHECKED PICTURES DOCUMENTED. READY FOR D/C
--- NOTE | 2019-01-28 14:27 | NUR ---
MERCHANT POLICE NOTE D/C PATIENT D/C WOUND PICTURES WERE TAKEN, BUT PATIENT REFUSED PERINEAL AREA AND TRUNK. OTHERS ARE IN CHART.
[2019-01-28 16:00] VITALS: BP 158/83
--- NOTE | 2019-01-28 16:00 | NUR ---
RN TRANSPORTATION NOTE RN CALLED TO FOLLOW UP WITH TRANSPORT. FAMILY AWAITING AT BEDSIDE. RN CALLED [facility] MULTIPLE TIMES LEFT MESSAGES TO GIVE REPORT. NO RESPONSE. CASE MANAGMENT ASSURED TANNING DRUM OPERATOR SHOULD BE HERE BETWEEN 2-4PM.
[2019-01-28] MEDS ORDERED: WARFARIN SODIUM 1 MG TABLET PO SCH (17:00)
--- NOTE | 2019-01-28 17:17 | NUR ---
RN NOTE MEDICATION PATIENT REFUSED FERROUS SULFATE DUE TO STOMACH UPSET. RN GAVE MAALOX PER MD ORDER.
--- NOTE | 2019-01-28 17:30 | NUR ---
LEAN MANUFACTURING ENGINEER NOTE PATIENT STILL AWAITING TRANSPORT. CASE MANAGMENT SAID THE AMBULANCE COMPANY WHO APPROVED HER INSURANCE IS NOT ANSWERING. WE ARE AWAITING RESPONSE. [facility] REPORT NUMBER NO ANSWER EITHER. [phone]
--- NOTE | 2019-01-28 19:05 | NUR ---
RN MS OPENING NOTES PATIENT IN BED AWAKE ALERT AND ORIENTED X3, RESPIRATIONS EVEN AND UNLABORED WITH EQUAL RISE AND FALL OF CHEST, DENIES ANY PAIN OR DISCOMFORT AT THIS TIME, IV SITE TO LEFT AC #20 G INTACT AND PATENT, NO REDNESS, NO INFILTRATION PRESENT, SAFETY PRECAUTIONS IN PLACE, LOW BED AND LOCKED, CALL LIGHT KEPT WITHIN REACH, ALL NEEDS ATTENDED AT THIS TIME WILL CONTINUE TO MONITOR AND ATTEND TO NEEDS PATIENT REPOSITIONED SCDS IN PLACE, REMAINS COMFORTABLE .
[2019-01-28] MEDS: HYDROCODONE/APAP 5/325MG 1 EACH TABLET PO PRN (19:52)
--- NOTE | 2019-01-28 19:52 | NUR ---
rn ms notes patient noted moaning with facial grimacing states "im in pain in my back 11/28, i need pain medication" patient states tylenol that was given was not helpful, i need something higher". norco prn offered patient agree, noted change in vitals 172/79,patient is moaning and facial grimacing present, norco prn given as ordered, patient repositioned and cleansed lights dimmed. will continue to monitor vital signs and pain.
[2019-01-28 20:00] VITALS: BP 172/79
--- NOTE | 2019-01-28 23:50 | NUR ---
RN MS NOTES WHEN REASSESSED BLOOD PRESSURE, NOTED B/P 174/69, HR 69. MADE MD DE AWARE AND AWARE OF ALLERGIES, WITH NEW ORDER FOR HYDRALAZINE 25MG PO Q6H PRN SBP>160. ALSO VERIFIED WITH [facility] REGARDING ALLERGIES OKAY TO GIVE, EXPLAINED TO PATIENT, PATIENT AGREED STATES " IN [place] [facility] HAD HIGH BLOOD PRESSURE". WILL CONTINUE TO REASSESS B/P.
[2019-01-29] MEDS ORDERED: hydrALAZINE HCL 25 MG TABLET PO PRN (00:30)
--- NOTE | 2019-01-29 04:08 | NUR ---
RN MS NOTES REASSESSED BLOOD PRESSURE DECREASED 151/77,71
--- NOTE | 2019-01-29 06:47 | NUR ---
RN MS CLOSING NOTES PATIENT IN BED AWAKE ALERT AND ORIENTED X3, RESPIRATIONS EVEN AND UNLABORED WITH EQUAL RISE AND FALL OF CHEST, DENIES ANY PAIN OR DISCOMFORT AT THIS TIME, IV SITE TO LEFT AC #20 G INTACT AND PATENT, NO REDNESS, NO INFILTRATION PRESENT, SKIN REMAINS INTACT, REPOSITIONED Q 2HRS, LEFT LOWER LEG ELEVATED, FREQUENTLY CHANGED DIAPER THROUGHOUT SHIFT, PRN HYDRALAZINE WAS EFFECTIVE, SAFETY PRECAUTIONS IN PLACE, LOW BED AND LOCKED, CALL LIGHT KEPT WITHIN REACH, ALL NEEDS ATTENDED AT THIS TIME WILL CONTINUE TO MONITOR AND ATTEND TO NEEDS PATIENT REPOSITIONED , REMAINS COMFORTABLE WILL ENDORSE TO NEXT SHIFT.
[2019-01-29 07:21] LABS: CALCIUM, SERUM 8.2 mg/dL (8.5-10.1); CREATININE 0.8 mg/dL (0.6-1.3); PHOSPHORUS 2.2 mg/dL (2.5-4.9); POTASSIUM 3.8 mmol/L (3.5-5.1)
[2019-01-29 08:00] VITALS: BP 171/79
--- NOTE | 2019-01-29 08:30 | NUR ---
RN MS NOTES PT IN BED, AWAKE, ALERT AND ORIENTED, PAIN MEDICATION GIVEN FOR HIP PAIN, NOT IN DISTRESS, CALL LIGHT WITHIN REACH, ASSISTED WITH BREAKFAST, KEPT WARM AND COMFORTABLE IN BED, PLAN OF CARE DISCUSSED WITH PT, VERBALIZED UNDERSTANDING.
[2019-01-29] MEDS: FERROUS SULFATE (325 MG) 325 MG/TAB TABLET PO SCH (09:05)
[2019-01-29] MEDS: PANTOPRAZOLE 40 MG VIAL IV SCH (09:05)
[2019-01-29] MEDS: HYDROCODONE/APAP 5/325MG 1 EACH TABLET PO PRN (09:06)
--- NOTE | 2019-01-29 11:25 | NUR ---
RN MS NOTES PT IN BED, ASLEEP, EASY TO AROUSE, ALERT AND ORIENTED, DENIES PAIN, RESPIRATIONS NORMAL, CALL LIGHT WITHIN REACH, PT FOR TRANSFER TO [facility], PT INFORMED, DISCHARGE AND MEDICATION INSTRUCTIONS PROVIDED TO PT, VERBALIZED UNDERSTANDING, BELONGINGS ACCOUNTED FOR, REPORT GIVEN TO HARVEY VEGA OF [facility], PICKED UP BY 2 AMBULANCE PERSONNEL, LEFT VIA GUERNEY IN STABLE CONDITION.
[2019-01-29] MEDS ORDERED: NEUTRA PHOS 1 POWD.PACKET PO ONE (12:30)
== END 2019-01-29 11:25 | DRG 604 ==
LOC: ER 16:21 → MED 20:13
PROVIDERS: ADMIT Registered Nurse; ATTEND Nurse Practitioner Acute Care
PROC: 30233N1 Transfusion of Nonautologous Red Blood Cells into Peripheral Vein, Percutaneous Approach (ICD-10-PCS; principal; 2019-01-22)
DX: S30.0XXA Contusion of lower back and pelvis, initial encounter (principal); N17.0 Acute kidney failure with tubular necrosis; N39.0 Urinary tract infection, site not specified; E44.0 Moderate protein-calorie malnutrition; I42.9 Cardiomyopathy, unspecified; Y92.9 Unspecified place or not applicable; W19.XXXA Unspecified fall, initial encounter; I10 Essential (primary) hypertension; E86.0 Dehydration; I48.91 Unspecified atrial fibrillation; Z88.0 Allergy status to penicillin; Z88.2 Allergy status to sulfonamides; T45.515A Adverse effect of anticoagulants, initial encounter; Y92.009 Unspecified place in unspecified non-institutional (private) residence as the place of occurrence of the external cause; D50.9 Iron deficiency anemia, unspecified; E11.9 Type 2 diabetes mellitus without complications; K80.20 Calculus of gallbladder without cholecystitis without obstruction; K82.8 Other specified diseases of gallbladder; N83.202 Unspecified ovarian cyst, left side; Z79.01 Long term (current) use of anticoagulants; E66.9 Obesity, unspecified; Z68.31 Body mass index [BMI] 31.0-31.9, adult; B96.89 Other specified bacterial agents as the cause of diseases classified elsewhere
CPT/HCPCS: 36415; 70450-TC; 73700-TC; 80048-TC; 80053-TC; 80061-TC; 81000-TC; 82272-TC; 83540-TC; 83735-TC; 84100-TC; 84443-TC; 85025-TC; 85610-TC; 85730-TC; 86850-TC; 86921-TC; 87081-TC; 87086-TC; 97110-TC; 97112-TC; 97116-TC; 97530-TC; A4216; C9113; G0378; J1956; J2270; J2405; J3430; J3480; J7030; J7040; J7050; P9016-BL; Q0162